=== PATIENT | male | born 1970 | race Caucasian/White ===

== ENCOUNTER → 2016-08-21 | Outpatient (CLI) | payer BC ==
[~2016-08-21] MED LIST: AMITRIPTYLINE25 MG PO; BOOSTRIX IM; CARAFATE1 GM/10 ML PO; CLOBETASOL PROP0.052; CLOBETASOL PROP0.055 TP; ELIQUIS5 MG PO; FLECAINIDE ACE100 MG PO; FLEXERIL10 MG PO; GABAPENTIN600 MG PO; LISINOPRIL AND1 TA1 PO; LISINOPRIL10 MG PO; LOPRESSOR50 MG PO; METOCLOPRAMIDE10 M1 PO; NEXIUM 40MG40 MG PO; NORCO 325 MG-51 TAB PO; ULTRAM 50MG TAB50 MG PO
== END ==
LOC: LAB 10:18
DX: E11.9 Type 2 diabetes mellitus without complications (principal); I48.0 Paroxysmal atrial fibrillation; I10 Essential (primary) hypertension; M54.16 Radiculopathy, lumbar region; J00 Acute nasopharyngitis [common cold]

== ENCOUNTER → 2016-11-20 | Outpatient (CLI) | payer BC ==
[2014-04-07 10:48] VITALS: BP 125/85
== END ==
LOC: LAB 09:45
DX: E11.9 Type 2 diabetes mellitus without complications (principal)

== ENCOUNTER → 2017-02-19 | Outpatient (CLI) | payer BC ==
[2014-04-07 10:48] VITALS: BP 125/85
== END ==
LOC: LAB 10:03
DX: E11.9 Type 2 diabetes mellitus without complications (principal); I10 Essential (primary) hypertension; M51.36 Other intervertebral disc degeneration, lumbar region

== ENCOUNTER → 2017-08-24 | Outpatient (CLI) | payer BC ==
[2014-04-07 10:48] VITALS: BP 125/85
== END ==
LOC: LAB 14:16
DX: E11.9 Type 2 diabetes mellitus without complications (principal)

== ENCOUNTER 2018-02-20 16:57 | Emergency (ER) | payer BC ==
[~2018-02-20] VITALS: Ht 188 cm; Wt 238.6 kg
[~2018-02-20 16:57] MED LIST changes: +ACETAMINOPHEN-H1 TA1 PO; +AMITRIPTYLINE H25 M2 PO; -AMITRIPTYLINE25 MG PO; -GABAPENTIN600 MG PO; +LOPRESSOR 550 MG/TAB PO; -LOPRESSOR50 MG PO; +NEURONTIN600 M1 PO; -NORCO 325 MG-51 TAB PO
[2018-02-20] MEDS ORDERED: ATORVASTATIN CA10 MG PO (17:35)
[2018-02-20] MEDS ORDERED: HYDROCHLOROTHIA1 T15 PO (17:36)
[2018-02-20] MEDS ORDERED: METFORMIN HYD1000 MG PO (17:37)
[2018-02-20] MEDS ORDERED: GLIPIZIDE ER5 MG PO (17:38)
[2018-02-20 18:01] LABS: EOS # 0.3 (0.04-0.40); HEMOGLOBIN 15.4 g/dL (13.5-18.0); LYMPH# 2.1 (1.50-4.00); MEAN CELL VOLUME 93 fl (78-100); MEAN CORPUSCULAR HEMOGLOBIN 28 pg (27-31); MEAN CORPUSCULAR HGB CONC 30 g/dL (33-37); MEAN PLATELET VOLUME 10.5 fl (7.4-10.4); MONO # 0.8 (0.20-0.80); NEU # 6.3 (1.40-6.50); PLATELET COUNT 303 K/mm3 (130-400); RED CELL DISTRIBUTION WIDTH 16.3 % (11.5-14.5); WHITE BLOOD COUNT 9.5 K/mm3 (4.8-10.8)
[2018-02-20 18:12] LABS: ALBUMIN 4.2 g/dL (3.5-5.0); BUN/CREATININE RATIO 20.5 (6.0-26.0); CALCIUM 8.7 mg/dL (8.4-10.2); CKMB ISOENZYME 1.4 ng/mL (0.6-3.5); POTASSIUM 4.3 mmol/L (3.6-5.0); TOTAL BILIRUBIN 0.6 mg/dL (0.2-1.3); TOTAL PROTEIN 7.5 g/dL (6.3-8.2)
[2018-02-20 18:17] LABS: TROPONIN-I < 0.03 ng/mL (0.00-0.06)
[2018-02-20 18:35] LABS: D-DIMER 0.36 mg/L FEU (0.15-0.50)
[2018-02-20 18:40] LABS: URINE APPEARANCE CLEAR; URINE BILIRUBIN NEGATIVE (NEGATIVE); URINE BLOOD NEGATIVE (NEGATIVE); URINE COLOR YELLOW; URINE GLUCOSE NEGATIVE (NEGATIVE); URINE KETONE NEGATIVE (NEGATIVE); URINE LEUKOCYTE ESTERASE NEGATIVE (NEGATIVE); URINE NITRATE NEGATIVE (NEGATIVE); URINE PROTEIN(semi-quant) TRACE mg/dL (NEGATIVE); URINE UROBILINOGEN NORMAL (NORMAL)
[2018-02-20 18:52] LABS: PROTHROMBIN TIME 10.2 SECONDS (9.0-12.0)
[2018-02-20 20:06] VITALS: BP 112/46
== END 2018-02-20 20:06 | disposition short-term general hospital (02) ==
LOC: ED 16:57
PROVIDERS: Nurse Practitioner
DX: I48.92 Unspecified atrial flutter (principal); I48.91 Unspecified atrial fibrillation; E11.9 Type 2 diabetes mellitus without complications; Z79.84 Long term (current) use of oral hypoglycemic drugs; I10 Essential (primary) hypertension; Z79.01 Long term (current) use of anticoagulants; Z79.899 Other long term (current) drug therapy
CPT/HCPCS: J3490; J7030

== ENCOUNTER → 2018-03-04 | Outpatient (CLI) | payer BC ==
[2018-02-20 20:06] VITALS: BP 112/46
[~2018-03-04] MED LIST changes: +ATORVASTATIN CA10 MG PO; +GLIPIZIDE ER5 MG PO; +HYDROCHLOROTHIA1 T15 PO; +METFORMIN HYD1000 MG PO
[2018-03-04 17:46] LABS: EOS # 0.3 (0.04-0.40); EOS % 3.7 % (0.0-4.0); HEMATOCRIT 47.5 % (42.0-52.0); HEMOGLOBIN 14.2 g/dL (13.5-18.0); LYMPH# 1.2 (1.50-4.00); MEAN CELL VOLUME 92 fl (78-100); MEAN CORPUSCULAR HEMOGLOBIN 28 pg (27-31); MEAN CORPUSCULAR HGB CONC 30 g/dL (33-37); MEAN PLATELET VOLUME 10.3 fl (7.4-10.4); MONO # 0.6 (0.20-0.80); NEU # 6.2 (1.40-6.50); PLATELET COUNT 258 K/mm3 (130-400); RED BLOOD COUNT 5.14 M/mm3 (4.20-5.60); RED CELL DISTRIBUTION WIDTH 16.1 % (11.5-14.5); WHITE BLOOD COUNT 8.3 K/mm3 (4.8-10.8)
== END ==
LOC: LAB 16:33
PROVIDERS: Nurse Practitioner Family
DX: Z00.00 Encounter for general adult medical examination without abnormal findings (principal); E11.9 Type 2 diabetes mellitus without complications; I10 Essential (primary) hypertension

== ENCOUNTER → 2018-06-18 | Outpatient (CLI) | payer BC ==
[2018-06-18 17:25] LABS: EOS # 0.3 (0.04-0.40); HEMATOCRIT 48.5 % (42.0-52.0); HEMOGLOBIN 14.8 g/dL (13.5-18.0); LYMPH# 1.7 (1.50-4.00); MEAN CELL VOLUME 91 fl (78-100); MEAN CORPUSCULAR HEMOGLOBIN 28 pg (27-31); MEAN CORPUSCULAR HGB CONC 31 g/dL (33-37); MEAN PLATELET VOLUME 10.5 fl (7.4-10.4); MONO # 0.6 (0.20-0.80); NEU # 7.7 (1.40-6.50); PLATELET COUNT 253 K/mm3 (130-400); RED BLOOD COUNT 5.34 M/mm3 (4.20-5.60); RED CELL DISTRIBUTION WIDTH 15.9 % (11.5-14.5); WHITE BLOOD COUNT 10.4 K/mm3 (4.8-10.8)
[2018-06-18 17:35] LABS: ALBUMIN 4.5 g/dL (3.5-5.0); CALCIUM 9.1 mg/dL (8.4-10.2); POTASSIUM 4.4 mmol/L (3.6-5.0); TOTAL BILIRUBIN 0.4 mg/dL (0.2-1.3); TOTAL PROTEIN 7.8 g/dL (6.3-8.2)
== END ==
LOC: LAB 16:22
PROVIDERS: Family Medicine
DX: I48.0 Paroxysmal atrial fibrillation (principal); I10 Essential (primary) hypertension; E11.9 Type 2 diabetes mellitus without complications

== ENCOUNTER → 2018-08-14 | Outpatient (CLI) | payer BC ==
[2018-08-14 11:41] LABS: EOS # 0.3 (0.04-0.40); EOS % 4.4 % (0.0-4.0); HEMATOCRIT 46.4 % (42.0-52.0); HEMOGLOBIN 14.1 g/dL (13.5-18.0); LYMPH# 1.8 (1.50-4.00); MEAN CELL VOLUME 91 fl (78-100); MEAN CORPUSCULAR HEMOGLOBIN 28 pg (27-31); MEAN CORPUSCULAR HGB CONC 30 g/dL (33-37); MEAN PLATELET VOLUME 9.4 fl (7.4-10.4); MONO # 0.6 (0.20-0.80); NEU # 4.6 (1.40-6.50); PLATELET COUNT 275 K/mm3 (130-400); RED BLOOD COUNT 5.11 M/mm3 (4.20-5.60); RED CELL DISTRIBUTION WIDTH 14.8 % (11.5-14.5); WHITE BLOOD COUNT 7.3 K/mm3 (4.8-10.8)
[2018-08-14 12:46] LABS: ERYTHROCYTE SEDIMENTATION RATE 18 mm/hr (0-15)
== END ==
LOC: LAB 11:30
PROVIDERS: Family Medicine
DX: M79.671 Pain in right foot (principal)

== ENCOUNTER → 2018-08-21 | Outpatient (CLI) | payer BC | LOC: RAD 13:33 | DX: M79.674 Pain in right toe(s) (principal) ==

== ENCOUNTER → 2018-09-06 | Outpatient (CLI) | payer BC ==
[2018-09-06 13:07] LABS: EOS # 0.4 (0.04-0.40); HEMATOCRIT 45.5 % (42.0-52.0); HEMOGLOBIN 14.3 g/dL (13.5-18.0); LYMPH# 1.8 (1.50-4.00); MEAN CELL VOLUME 90 fl (78-100); MEAN CORPUSCULAR HEMOGLOBIN 28 pg (27-31); MEAN CORPUSCULAR HGB CONC 31 g/dL (33-37); MEAN PLATELET VOLUME 10.3 fl (7.4-10.4); MONO # 0.5 (0.20-0.80); NEU # 5.1 (1.40-6.50); PLATELET COUNT 251 K/mm3 (130-400); RED BLOOD COUNT 5.07 M/mm3 (4.20-5.60); RED CELL DISTRIBUTION WIDTH 13.7 % (11.5-14.5); WHITE BLOOD COUNT 7.8 K/mm3 (4.8-10.8)
[2018-09-06 13:30] LABS: EOS % 5.4 % (0.0-4.0)
[2018-09-06 13:51] LABS: ALBUMIN 4.1 g/dL (3.5-5.0); CALCIUM 9.1 mg/dL (8.4-10.2); POTASSIUM 4.5 mmol/L (3.6-5.0); TOTAL BILIRUBIN 0.5 mg/dL (0.2-1.3)
== END ==
LOC: LAB 12:39
PROVIDERS: Nurse Practitioner
DX: M86.9 Osteomyelitis, unspecified (principal)

== ENCOUNTER → 2018-09-25 | Outpatient (CLI) | payer BC ==
[2018-09-25 11:32] LABS: EOS # 0.4 (0.04-0.40); EOS % 4.8 % (0.0-4.0); LYMPH# 1.6 (1.50-4.00); MEAN CELL VOLUME 90 fl (78-100); MEAN CORPUSCULAR HEMOGLOBIN 28 pg (27-31); MEAN CORPUSCULAR HGB CONC 31 g/dL (33-37); MEAN PLATELET VOLUME 10.1 fl (7.4-10.4); MONO # 0.5 (0.20-0.80); NEU # 5.7 (1.40-6.50); PLATELET COUNT 229 K/mm3 (130-400); RED BLOOD COUNT 4.99 M/mm3 (4.20-5.60); RED CELL DISTRIBUTION WIDTH 13.8 % (11.5-14.5); WHITE BLOOD COUNT 8.3 K/mm3 (4.8-10.8)
[2018-09-25 13:24] LABS: ERYTHROCYTE SEDIMENTATION RATE 25 mm/hr (0-15)
== END ==
LOC: LAB 10:55
PROVIDERS: Family Medicine
DX: M79.674 Pain in right toe(s) (principal)

== ENCOUNTER → 2019-03-17 | Outpatient (CLI) | payer BC ==
[2019-03-17 17:37] LABS: EOS # 0.4 (0.04-0.40); HEMATOCRIT 43.9 % (42.0-52.0); HEMOGLOBIN 13.8 g/dL (13.5-18.0); LYMPH# 1.7 (1.50-4.00); MEAN CELL VOLUME 92 fl (78-100); MEAN CORPUSCULAR HEMOGLOBIN 29 pg (27-31); MEAN CORPUSCULAR HGB CONC 31 g/dL (33-37); MEAN PLATELET VOLUME 9.5 fl (7.4-10.4); MONO # 0.7 (0.20-0.80); NEU # 5.9 (1.40-6.50); PLATELET COUNT 258 K/mm3 (130-400); RED BLOOD COUNT 4.76 M/mm3 (4.20-5.60); RED CELL DISTRIBUTION WIDTH 13.4 % (11.5-14.5); WHITE BLOOD COUNT 8.8 K/mm3 (4.8-10.8)
[2019-03-17 17:45] LABS: ALBUMIN 4.3 g/dL (3.5-5.0); POTASSIUM 4.5 mmol/L (3.5-5.1)
[2019-03-17 17:46] LABS: CALCIUM 9.5 mg/dL (8.3-10.5)
[2019-03-17 17:48] LABS: TOTAL PROTEIN 8.2 g/dL (6.4-8.3)
[2019-03-17 17:49] LABS: TOTAL BILIRUBIN 0.3 mg/dL (0.2-1.2)
== END ==
LOC: LAB 17:23
PROVIDERS: Family Medicine
DX: E78.5 Hyperlipidemia, unspecified (principal); E11.9 Type 2 diabetes mellitus without complications

== ENCOUNTER → 2019-03-26 | Outpatient (CLI) | payer BC | LOC: RAD 09:40 | DX: R42 Dizziness and giddiness (principal); R51 Headache ==

== ENCOUNTER → 2019-06-06 | Outpatient (CLI) | payer BC | LOC: LAB 14:41 | DX: M86.9 Osteomyelitis, unspecified (principal); R51 Headache ==

== ENCOUNTER → 2019-12-08 | Outpatient (CLI) | payer BC ==
[2019-12-08 11:22] LABS: ALBUMIN 4.4 g/dL (3.5-5.0); EOS # 0.3 (0.04-0.40); EOS % 3.5 % (0.0-4.0); HEMATOCRIT 40.6 % (42.0-52.0); HEMOGLOBIN 12.5 g/dL (13.5-18.0); LYMPH# 1.6 (1.50-4.00); MEAN CELL VOLUME 93 fl (78-100); MEAN CORPUSCULAR HEMOGLOBIN 29 pg (27-31); MEAN CORPUSCULAR HGB CONC 31 g/dL (33-37); MEAN PLATELET VOLUME 10.8 fl (7.4-10.4); MONO # 0.6 (0.20-0.80); NEU # 5.3 (1.40-6.50); PLATELET COUNT 257 K/mm3 (130-400); RED BLOOD COUNT 4.36 M/mm3 (4.20-5.60); RED CELL DISTRIBUTION WIDTH 14.1 % (11.5-14.5); WHITE BLOOD COUNT 7.7 K/mm3 (4.8-10.8)
[2019-12-08 11:23] LABS: POTASSIUM 4.2 mmol/L (3.5-5.1)
[2019-12-08 11:24] LABS: CALCIUM 9.5 mg/dL (8.3-10.5)
[2019-12-08 11:25] LABS: TOTAL PROTEIN 7.4 g/dL (6.4-8.3)
[2019-12-08 11:27] LABS: TOTAL BILIRUBIN 0.5 mg/dL (0.2-1.2)
[2019-12-08 22:20] LABS: COMPLEMENT C3 206 mg/dL (79-152)
[2019-12-09 11:02] LABS: COMPLEMENT-C4 38.8 mg/dL (())
[2019-12-09 12:22] LABS: ANA SCREEN with REFLEX Positive (Negative)
== END ==
LOC: LAB 09:27
PROVIDERS: Family Medicine
DX: E11.9 Type 2 diabetes mellitus without complications (principal); R70.0 Elevated erythrocyte sedimentation rate; M19.90 Unspecified osteoarthritis, unspecified site; M35.00 Sjogren syndrome, unspecified; Z79.899 Other long term (current) drug therapy

== ENCOUNTER → 2020-06-21 | Outpatient (CLI) | payer BC ==
[2020-06-21 15:38] LABS: EOS # 0.4 (0.04-0.40); EOS % 4.4 % (0.0-4.0); HEMATOCRIT 41.8 % (42.0-52.0); HEMOGLOBIN 13.1 g/dL (13.5-18.0); LYMPH# 1.9 (1.50-4.00); MEAN CELL VOLUME 92 fl (78-100); MEAN CORPUSCULAR HEMOGLOBIN 29 pg (27-31); MEAN CORPUSCULAR HGB CONC 31 g/dL (33-37); MONO # 0.6 (0.20-0.80); NEU # 5.3 (1.40-6.50); PLATELET COUNT 272 K/mm3 (130-400); RED BLOOD COUNT 4.53 M/mm3 (4.20-5.60); RED CELL DISTRIBUTION WIDTH 14.2 % (11.5-14.5); WHITE BLOOD COUNT 8.2 K/mm3 (4.8-10.8)
[2020-06-21 15:49] LABS: POTASSIUM 4.2 mmol/L (3.5-5.1); SODIUM 141 mmol/L (136-145)
[2020-06-21 15:50] LABS: ALBUMIN 4.5 g/dL (3.5-5.0)
[2020-06-21 15:51] LABS: CALCIUM 9.4 mg/dL (8.3-10.5)
[2020-06-21 15:52] LABS: GLUCOSE 81 mg/dL (75-110); TOTAL PROTEIN 7.7 g/dL (6.4-8.3)
[2020-06-21 15:53] LABS: CARBON DIOXIDE 26 mmol/L (22-29)
[2020-06-21 15:54] LABS: TOTAL BILIRUBIN 0.5 mg/dL (0.2-1.2)
[2020-06-21 15:57] LABS: AST-SGOT 22 U/L (5-34)
[2020-06-21 15:59] LABS: ALT/SGPT 20 U/L (0-55)
[2020-06-21 16:11] LABS: TROPONIN-I < 0.03 ng/mL (<0.030)
[2020-06-21 16:13] LABS: LIPASE 33 U/L (8-78)
== END ==
LOC: LAB 15:22
PROVIDERS: Family Medicine
DX: I10 Essential (primary) hypertension (principal); E11.9 Type 2 diabetes mellitus without complications; E78.5 Hyperlipidemia, unspecified; R07.9 Chest pain, unspecified

== ENCOUNTER → 2020-10-04 | Outpatient (CLI) | payer BC | LOC: LAB 12:53 | DX: E11.9 Type 2 diabetes mellitus without complications (principal) ==

== ENCOUNTER → 2020-12-15 | Outpatient (CLI) | payer BC ==
[2020-12-15 11:57] LABS: BASO # 0.04 (0.02-0.10); EOS % 5.4 % (0.0-4.0); HEMATOCRIT 42.3 % (42.0-52.0); HEMOGLOBIN 13.6 g/dL (13.5-18.0); MEAN CELL VOLUME 93 fl (78-100); MEAN CORPUSCULAR HEMOGLOBIN 30 pg (27-31); MEAN CORPUSCULAR HGB CONC 32 g/dL (33-37); MEAN PLATELET VOLUME 10.3 fl (7.4-10.4); MONO # 0.48 (0.20-0.80); PLATELET COUNT 172 K/mm3 (130-400); RED BLOOD COUNT 4.56 M/mm3 (4.20-5.60); RED CELL DISTRIBUTION WIDTH 13.5 % (11.5-14.5); WHITE BLOOD COUNT 7.4 K/mm3 (4.8-10.8)
[2020-12-15 12:06] LABS: ALBUMIN 4.4 g/dL (3.5-5.0); POTASSIUM 4.3 mmol/L (3.5-5.1)
[2020-12-15 12:07] LABS: CALCIUM 9.1 mg/dL (8.3-10.5)
[2020-12-15 12:08] LABS: TOTAL PROTEIN 7.4 g/dL (6.4-8.3)
[2020-12-15 12:10] LABS: TOTAL BILIRUBIN 0.7 mg/dL (0.2-1.2)
== END ==
LOC: LAB 11:38
PROVIDERS: Family Medicine
DX: I10 Essential (primary) hypertension (principal); E11.9 Type 2 diabetes mellitus without complications

== ENCOUNTER → 2021-05-13 | Outpatient (CLI) | payer BC ==
[2021-05-13 12:15] LABS: BASO # 0.03 K/mm3 (0.02-0.10); EOS # 0.33 K/mm3 (0.04-0.40); EOS % 5.9 % (0.0-4.0); HEMATOCRIT 39.2 % (42.0-52.0); HEMOGLOBIN 12.4 g/dL (13.5-18.0); LYMPH# 1.54 K/mm3 (1.50-4.00); MEAN CELL VOLUME 94 fl (78-100); MEAN CORPUSCULAR HEMOGLOBIN 30 pg (27-31); MEAN CORPUSCULAR HGB CONC 32 g/dL (33-37); MONO # 0.38 K/mm3 (0.20-0.80); NEU # 3.31 K/mm3 (1.40-6.50); PLATELET COUNT 208 K/mm3 (130-400); RED BLOOD COUNT 4.16 M/mm3 (4.20-5.60); RED CELL DISTRIBUTION WIDTH 13.2 % (11.5-14.5); WHITE BLOOD COUNT 5.6 K/mm3 (4.8-10.8)
[2021-05-13 12:17] LABS: POTASSIUM 4.9 mmol/L (3.5-5.1)
[2021-05-13 12:18] LABS: ALBUMIN 4.1 g/dL (3.5-5.0)
[2021-05-13 12:19] LABS: CALCIUM 10.3 mg/dL (8.3-10.5)
[2021-05-13 12:20] LABS: TOTAL PROTEIN 7.1 g/dL (6.4-8.3)
[2021-05-13 12:22] LABS: TOTAL BILIRUBIN 0.3 mg/dL (0.2-1.2)
== END ==
LOC: LAB 11:36
PROVIDERS: Family Medicine
DX: E78.5 Hyperlipidemia, unspecified (principal); E11.9 Type 2 diabetes mellitus without complications; E55.9 Vitamin D deficiency, unspecified; I10 Essential (primary) hypertension

== ENCOUNTER → 2021-12-12 | Outpatient (CLI) | payer BC | LOC: LAB 12:01 | DX: M18.9 Osteoarthritis of first carpometacarpal joint, unspecified (principal); M19.041 Primary osteoarthritis, right hand ==

== ENCOUNTER → 2022-01-06 | Outpatient (CLI) | payer BC, MEDICARE ==
[2022-01-06 14:10] LABS: BASO # 0.04 K/mm3 (0.02-0.10); EOS # 0.45 K/mm3 (0.04-0.40); EOS % 5.9 % (0.0-4.0); HEMOGLOBIN 14.4 g/dL (13.5-18.0); LYMPH# 1.71 K/mm3 (1.50-4.00); MEAN CELL VOLUME 91 fl (78-100); MEAN CORPUSCULAR HEMOGLOBIN 29 pg (27-31); MEAN CORPUSCULAR HGB CONC 32 g/dL (33-37); MEAN PLATELET VOLUME 8.6 fl (7.4-10.4); MONO # 0.49 K/mm3 (0.20-0.80); NEU # 4.91 K/mm3 (1.40-6.50); PLATELET COUNT 233 K/mm3 (130-400); RED BLOOD COUNT 4.93 M/mm3 (4.20-5.60); RED CELL DISTRIBUTION WIDTH 12.5 % (11.5-14.5); WHITE BLOOD COUNT 7.6 K/mm3 (4.8-10.8)
[2022-01-06 14:18] LABS: ALBUMIN 4.4 g/dL (3.5-5.0); POTASSIUM 4.6 mmol/L (3.5-5.1)
[2022-01-06 14:19] LABS: CALCIUM 9.8 mg/dL (8.3-10.5)
[2022-01-06 14:21] LABS: TOTAL PROTEIN 7.2 g/dL (6.4-8.3)
[2022-01-06 14:22] LABS: TOTAL BILIRUBIN 0.6 mg/dL (0.2-1.2)
[2022-01-06 15:27] LABS: ERYTHROCYTE SEDIMENTATION RATE 23 mm/hr (0-20)
== END ==
LOC: LAB 13:54
PROVIDERS: Family Medicine
DX: Z00.00 Encounter for general adult medical examination without abnormal findings (principal); E78.5 Hyperlipidemia, unspecified; E11.9 Type 2 diabetes mellitus without complications; M10.9 Gout, unspecified; E55.9 Vitamin D deficiency, unspecified

== ENCOUNTER → 2022-01-09 | Outpatient (CLI) | payer BC, MEDICARE | LOC: LAB 10:41 | DX: Z00.00 Encounter for general adult medical examination without abnormal findings (principal); E78.5 Hyperlipidemia, unspecified; E11.9 Type 2 diabetes mellitus without complications; E55.9 Vitamin D deficiency, unspecified ==

== ENCOUNTER → 2022-03-13 | Outpatient (CLI) | payer BC, MEDICARE | LOC: RAD 11:27 | DX: M51.36 Other intervertebral disc degeneration, lumbar region (principal); M50.30 Other cervical disc degeneration, unspecified cervical region; M48.04 Spinal stenosis, thoracic region; M48.061 Spinal stenosis, lumbar region without neurogenic claudication; M48.07 Spinal stenosis, lumbosacral region; M25.78 Osteophyte, vertebrae ==

== ENCOUNTER → 2022-08-01 | Outpatient (CLI) | payer BC, MEDICARE ==
[2022-08-01 09:00] LABS: BASO # 0.04 K/mm3 (0.02-0.10); EOS # 0.25 K/mm3 (0.04-0.40); EOS % 3.7 % (0.0-4.0); HEMATOCRIT 43.9 % (42.0-52.0); HEMOGLOBIN 14.1 g/dL (13.5-18.0); LYMPH# 1.25 K/mm3 (1.50-4.00); MEAN CELL VOLUME 91 fl (78-100); MEAN CORPUSCULAR HEMOGLOBIN 29 pg (27-31); MEAN CORPUSCULAR HGB CONC 32 g/dL (33-37); MEAN PLATELET VOLUME 9.3 fl (7.4-10.4); MONO # 0.45 K/mm3 (0.20-0.80); NEU # 4.72 K/mm3 (1.40-6.50); PLATELET COUNT 240 K/mm3 (130-400); RED BLOOD COUNT 4.82 M/mm3 (4.20-5.60); RED CELL DISTRIBUTION WIDTH 12.9 % (11.5-14.5); WHITE BLOOD COUNT 6.7 K/mm3 (4.8-10.8)
[2022-08-01 09:04] LABS: ALBUMIN 4.1 g/dL (3.5-5.0)
[2022-08-01 09:06] LABS: CALCIUM 9.4 mg/dL (8.3-10.5)
[2022-08-01 09:07] LABS: TOTAL PROTEIN 6.9 g/dL (6.4-8.3)
[2022-08-01 09:09] LABS: TOTAL BILIRUBIN 0.4 mg/dL (0.2-1.2)
== END ==
LOC: LAB 08:35
PROVIDERS: Family Medicine
DX: Z12.11 Encounter for screening for malignant neoplasm of colon (principal); I10 Essential (primary) hypertension; M51.36 Other intervertebral disc degeneration, lumbar region; K21.9 Gastro-esophageal reflux disease without esophagitis; G43.109 Migraine with aura, not intractable, without status migrainosus; E66.01 Morbid (severe) obesity due to excess calories; G47.33 Obstructive sleep apnea (adult) (pediatric); B00.1 Herpesviral vesicular dermatitis; M19.90 Unspecified osteoarthritis, unspecified site; E55.9 Vitamin D deficiency, unspecified; I48.0 Paroxysmal atrial fibrillation; J30.2 Other seasonal allergic rhinitis; E11.9 Type 2 diabetes mellitus without complications; M35.00 Sjogren syndrome, unspecified; M79.644 Pain in right finger(s); G89.29 Other chronic pain

== ENCOUNTER → 2024-03-25 | Outpatient (REF) | payer BC, MEDICARE | LOC: LAB 15:08 | DX: L97.809 Non-pressure chronic ulcer of other part of unspecified lower leg with unspecified severity (principal) ==

== ENCOUNTER → 2024-08-12 | Outpatient (CLI) | payer MEDICARE | LOC: RAD 11:24 | DX: M19.012 Primary osteoarthritis, left shoulder (principal) ==

== ENCOUNTER → 2024-09-23 | Outpatient (CLI) | payer MEDICARE, BC ==
[2024-09-23 11:55] LABS: BASO # 0.05 K/mm3 (0.02-0.10); EOS # 0.19 K/mm3 (0.04-0.40); HEMATOCRIT 48.3 % (42.0-52.0); HEMOGLOBIN 15.3 g/dL (13.5-18.0); LYMPH# 1.55 K/mm3 (1.50-4.00); MEAN CELL VOLUME 93 fl (78-100); MEAN CORPUSCULAR HEMOGLOBIN 30 pg (27-31); MEAN CORPUSCULAR HGB CONC 32 g/dL (33-37); MEAN PLATELET VOLUME 8.9 fl (7.4-10.4); MONO # 0.42 K/mm3 (0.20-0.80); NEU # 4.15 K/mm3 (1.40-6.50); PLATELET COUNT 266 K/mm3 (130-400); RED BLOOD COUNT 5.17 M/mm3 (4.20-5.60); RED CELL DISTRIBUTION WIDTH 12.8 % (11.5-14.5); WHITE BLOOD COUNT 6.4 K/mm3 (4.8-10.8)
[2024-09-23 12:04] LABS: ALBUMIN 4.5 g/dL (3.5-5.0)
[2024-09-23 12:05] LABS: CALCIUM 10.4 mg/dL (8.3-10.5)
[2024-09-23 12:06] LABS: TOTAL PROTEIN 8.3 g/dL (6.4-8.3)
[2024-09-23 12:08] LABS: TOTAL BILIRUBIN 0.4 mg/dL (0.2-1.2)
== END ==
LOC: LAB 11:33
PROVIDERS: Family Medicine
DX: Z12.5 Encounter for screening for malignant neoplasm of prostate (principal); I10 Essential (primary) hypertension; E11.9 Type 2 diabetes mellitus without complications; E55.9 Vitamin D deficiency, unspecified